=== PATIENT | female | born 1945 | race Caucasian/White ===

== ENCOUNTER 2023-08-22 13:57 | Outpatient (CLI) | payer OTHER | END 2023-08-22 13:58 | disposition home or self-care (01) | LOC: CSHMRI 13:57 | PROVIDERS: ATTEND Internal Medicine | DX: R41.3 Other amnesia (principal); G31.9 Degenerative disease of nervous system, unspecified; I67.9 Cerebrovascular disease, unspecified | CPT/HCPCS: 70551 ==

== ENCOUNTER 2024-02-26 09:37 | Outpatient (CLI) | payer OTHER | END 2024-02-26 09:38 | disposition home or self-care (01) | LOC: CSHMAMMO 09:37 | PROVIDERS: ATTEND Internal Medicine | DX: Z13.820 Encounter for screening for osteoporosis (principal); Z78.0 Asymptomatic menopausal state; M85.80 Other specified disorders of bone density and structure, unspecified site | CPT/HCPCS: 77080 ==